=== PATIENT | female | born 2000 | race Caucasian/White ===

== ENCOUNTER 2020-03-27 06:51 | Outpatient (NON) | payer OTHER, SELFPAY ==
[2020-03-28 00:16] LABS: SARS-CoV-2 RNA PCR Negative
== END 2020-03-27 06:52 ==
LOC: ANHCOVIDDT 07:02
PROVIDERS: PCP Pediatrics; Visit Provider Pediatrics
DX: Z02.0 Encounter for examination for admission to educational institution (principal); Z20.822 Contact with and (suspected) exposure to COVID-19
CPT/HCPCS: C9803; U0003; U0005

== ENCOUNTER → 2020-08-23 14:03 | Outpatient (CLI) | payer OTHER, SELFPAY ==
--- NOTE | ~2020-08-23 | US_ITS ---
EXAMINATION: US pelvic complete EXAM DATE: 08/23/2020 14:22 INDICATION: Pelvic pain. TECHNIQUE: Pelvic transabdominal sonogram was performed. There are multiple grayscale and Doppler im ages available for interpretation. There is no prior study for comparison. FINDINGS: Uterus measures 7.4 x 3.7 x 4.4 cm, and is morphologically normal. Endometrial stripe jericho sures 6 mm, within normal limits. There is no free pelvic fluid. Right adnexa: The ovary measures 3.3 x 1.9 x 2.3 cm and is morphologically normal. Ovarian vascular f low confirmed. Left adnexa: The ovary measures 8.2 x 6.3 x 5.7, most of this volume taken up by a large cystic appea ring lesion measuring 7.8 x 5.2 x 5.2 cm, may have some thin septations. Appearance most consistent w ith a hemorrhagic cyst. Consider 6 week follow-up exam. Ovarian vascular flow confirmed. IMPRESSION: Left ovarian cystic lesion most likely hemorrhagic cyst but consider 6 week follow-up pel naheed sonogram. Reviewed, dictated and finalized at location A. IMPRESSION: Left ovarian cystic lesion most likely hemorrhagic cyst but conside r 6 week follow-up pelvic sonogram.
== END ==
PROVIDERS: Visit Provider Nurse Practitioner
DX: R10.2 Pelvic and perineal pain (principal); N83.202 Unspecified ovarian cyst, left side
CPT/HCPCS: 76856

== ENCOUNTER → 2020-10-05 14:19 | Outpatient (CLI) | payer OTHER, SELFPAY ==
--- NOTE | ~2020-10-05 | US_ITS ---
EXAMINATION: US pelvic complete EXAM DATE: 10/05/2020 14:38 INDICATION: Ovarian cyst. TECHNIQUE: Pelvic transabdominal sonogram was performed. There are multiple grayscale and Doppler im ages available for interpretation. Comparison is made to prior examination from 08/23/2020. FINDINGS: Uterus measures 7.3 x 2.5 x 3.5 cm, and is morphologically normal. Endometrial stripe jericho sures 3.5 mm, within normal limits. There is no free pelvic fluid. Right adnexa: The ovary measures 2.3 x 2.2 x 3.0 cm and is morphologically normal. Ovarian vascular f low confirmed. Left adnexa: The ovary measures 2.5 x 1.9 x 1.9 cm and is morphologically normal, interval resolution of the previously seen large cystic region which was probably a hemorrhagic cyst. Ovarian vascular f low confirmed. IMPRESSION: Unremarkable pelvic ultrasound exam. Reviewed, dictated and finalized at location A.
== END ==
PROVIDERS: Visit Provider Obstetrics & Gynecology Gynecology
DX: N83.202 Unspecified ovarian cyst, left side (principal)
CPT/HCPCS: 76856